=== PATIENT | female | born 1995 | race American Indian/Alaskan Native ===

== ENCOUNTER 2021-09-24 12:49 | Emergency (ER) | payer MEDICAID ==
[2021-09-24 13:33] VITALS: BP 121/78
--- NOTE | 2021-09-27 19:48 | Electrocardiograph Report ---
[facility] Test Date: 2021-09-24 Test Time: 13:39:27 Pat Name: SUMIT PIERCE Department: Room: Gender: F [employer]: HARRISON : 1995 Requested By: ED DOC Order Number: [id number] Reading MD: Dacia Chun Measurements Intervals [place] Rate: 88 P: 69 LA: 156 QRS: 67 QRSD: 74 T: 52 QT: 346 QTc: 418 Interpretive Statements Sinus rhythm Probable left atrial enlargement No previous ECG available for comparison Electronically Signed On 09-27-2021 19:47:57 EDT by Dacia Chun
== END 2021-09-24 21:37 | disposition left against medical advice (07) ==
LOC: ED 12:49
DX: R07.9 Chest pain, unspecified (principal); Z53.21 Procedure and treatment not carried out due to patient leaving prior to being seen by health care provider
CPT/HCPCS: 93005